=== PATIENT | female | born 1995 | race African-American/Black ===

== ENCOUNTER 2020-12-02 21:45 | Emergency (ER) | payer MEDICAID, OTHER ==
[~2020-12-02] VITALS: Ht 160 cm; Wt 77.3 kg
[~2020-12-02 21:45] MED LIST: CYCL-1 PO
--- NOTE | 2020-12-02 22:09 | NUR ---
ASKED PT HOW MANY SHOTS SHE DID, 'A SHIT DONE' WHEN ASKED HOW MANY TAHT WAS IF IT WAS 7, SAID HIGHER. ASKED 9, RESPONDED WITH HIGHER
[2020-12-02] MEDS ORDERED: ondansetron/PF 4mg/2ml inj IV ONE (22:10)
[2020-12-02] MEDS ORDERED: normal saline 1000ml 1,000 ML IV ONE (22:40)
[2020-12-02 23:41] VITALS: BP 96/57
== END 2020-12-03 01:30 | disposition home or self-care (01) ==
LOC: ER 21:45
DX: F10.129 Alcohol abuse with intoxication, unspecified (principal); Z72.89 Other problems related to lifestyle; Z79.899 Other long term (current) drug therapy; Y90.8 Blood alcohol level of 240 mg/100 ml or more
CPT/HCPCS: 36415; 80320; 82948; 96361; 96374; 99283; J2405; J7030